=== PATIENT | female | born 1945 | race American Indian/Alaskan Native ===

== ENCOUNTER 2016-08-05 11:29 | Emergency (ER) | payer MEDICARE ==
--- NOTE | 2016-08-05 12:02 | Emergency Department Report ---
Chief Complaint: Hyperglycemia Stated Complaint: HBS Time Seen by Provider: 08/05/16 11:58 - HPI History of Present Illness: PT reports that her bg has been elevated all week - ROS Review of Systems: - n/v + increased thirst + urinary frequency - Exam Vital Signs: Vital Signs 08/05/16 11:45 Temperature 97.5 F L Pulse Rate 82 Respiratory 18 Rate Blood Pressure 149/77 O2 Sat by Pulse 99 Oximetry Physical Exam: obese female looks well, non toxic. gcs 15 MSE screening note: Focused history and physical exam performed. Due to findings the following was ordered: labs ED Disposition for MSE Condition: Stable
[2016-08-05 12:22] LABS: Basophils % (Auto) 0.9 % (0.0-1.8); Mean Corpuscular HGB Conc 33 % (30-34); Mean Corpuscular Hemoglobin 28 pg (28-32); Mean Corpuscular Volume 85 fl (79-97); Platelet Count 160 K/mm3 (140-440); Red Blood Count 4.72 M/mm3 (3.65-5.03); Red Cell Distribution Width 14.5 % (13.2-15.2)
[2016-08-05 12:29] LABS: Bilirubin,Urine NEG (Negative); Blood,Urine NEG (Negative); Ketones,Urine NEG (Negative); Leukocyte Esterase,Urine TR (Negative); Nitrite,Urine NEG (Negative); Protein,Urine <15 mg/dL mg/dL (Negative); Urobilinogen,Urine < 2.0 mg/dL (<2.0)
[2016-08-05 12:37] LABS: Albumin 3.9 g/dL (3.9-5); Albumin/Globulin Ratio 1.1 %; BUN/Creatinine Ratio 28.57; Bilirubin,Total 0.2 mg/dL (0.1-1.2); Calcium 9.5 mg/dL (8.4-10.2); Chloride 92.2 mmol/L (98-107); Potassium 4.2 mmol/L (3.6-5.0); Total Protein 7.4 g/dL (6.3-8.2)
[2016-08-05] MEDS ORDERED: NACL 0.9% 500 ML 500 ML IV ONE (20:36)
--- NOTE | 2016-08-05 21:15 | Emergency Department Report ---
HPI - General Chief Complaint: Hyperglycemia Time Seen by Provider: 08/05/16 11:58 - HPI HPI: This is a 71-year-old Afro-[place] female presents to the emergency department from home with complaint of uncontrolled an elevated blood sugar for the past week. The patient says that she feels like she has no energy and has some increased thirst and urination. Otherwise she denies any nausea, vomiting, abdominal pain, chest pain, shortness of breath. Patient takes metformin 1000 mg twice a day and Humulin 70/30 at 12 units twice daily and says she has been compliant. She has a past medical history of this diabetes as well as hypertension, asthma, arthritis and high cholesterol. She goes to [facility] for her primary care needs. No recent travel or sick contacts at home. ED Past Medical Hx - Past Medical History Hx Hypertension: Yes Hx Diabetes: Yes Hx Arthritis: Yes Hx Asthma: Yes Additional medical history: HIGH CHOLESTEROL - Surgical History Hx Cholecystectomy: Yes Additional Surgical History: LEFT KNEE. HYSTERECTOMY - Social History Smoking Status: Former Smoker Substance Use Type: None ED Review of Systems ROS: Stated complaint: HBS Other details as noted in HPI Comment: All other systems reviewed and negative Constitutional: denies: chills, fever Eyes: denies: eye pain, eye discharge, vision change ENT: denies: ear pain, throat pain Respiratory: denies: cough, shortness of breath, wheezing Cardiovascular: denies: chest pain, palpitations Endocrine: increased thirst, increased urine Genitourinary: frequency. denies: dysuria Musculoskeletal: denies: back pain, joint swelling, arthralgia Skin: denies: rash, lesions Neurological: denies: headache, weakness, paresthesias Physical Exam - Physical Exam Vital Signs: Vital Signs 08/05/16 08/05/16 08/05/16 11:45 20:22 20:28 Temperature 97.5 F L 97.7 F Pulse Rate 82 80 Respiratory 18 18 18 Rate Blood Pressure 149/77 Blood Pressure 142/66 [Left] O2 Sat by Pulse 99 98 98 Oximetry Physical Exam: GENERAL: The patient is well-developed well-nourished. HEENT: Normocephalic. Atraumatic. Extraocular motions are intact. Patient has moist mucous membranes. Pupils equal reactive to light bilaterally. NECK: Supple. Trachea is midline. CHEST/LUNGS: Clear to auscultation. There is no respiratory distress noted. HEART/CARDIOVASCULAR: Regular. There is no tachycardia. There is no gallop rub or murmur. ABDOMEN: Abdomen is soft, nontender. Patient has normal bowel sounds. There is no abdominal distention. SKIN: Skin is warm and dry. NEURO: The patient is awake, alert, and oriented. The patient is cooperative. The patient has no focal neurologic deficits. The patient has normal speech. Cranial nerves II through XII grossly intact. MUSCULOSKELETAL: There is no tenderness or deformity. There is no limitation range of motion. There is no evidence of acute injury. ED Course Vital Signs 08/05/16 08/05/16 08/05/16 11:45 20:22 20:28 Temperature 97.5 F L 97.7 F Pulse Rate 82 80 Respiratory 18 18 18 Rate Blood Pressure 149/77 Blood Pressure 142/66 [Left] O2 Sat by Pulse 99 98 98 Oximetry ED Medical Decision Making - Lab Data Result diagrams: 08/05/16 12:00 08/06/16 00:16 - Medical Decision Making This is a 71-year-old female presents to the emergency department with a complaint of decreased energy and uncontrolled blood sugar despite compliance with medication. Patient has a blood sugar of about 470 when she first had her metabolic panel drawn much earlier today. She had very mild venous acidosis and a mild elevation in her anion gap but still did not necessarily appear at that point to have obvious DKA. However that was through triage and prior to the patient getting back to the emergency department. Once I was able to mixing picker tender her chart and see the patient it had been close to 7 hours since those labs were drawn. An Accu-Chek was done showing that the blood sugar was under 400. The patient was given a dose of IV insulin and 500 mL bolus of fluid. Upon recheck her blood sugar did not improve greatly at that point. For this reason she was given another dose of IV insulin and a 1 L bolus of fluid. Her blood sugar came down to about 297 on Accu-Chek. I rechecked her metabolic panel and venous pH and found improvements. Patient no longer has any type of acidosis. The mild renal insufficiency she had a first has resolved and has normal kidney function. Patient has been resting comfortably. Her vital signs been stable throughout her ED course. For all these reasons I feel the patient is safe for discharge home. She will continue with her diabetes medications. We discussed dietary changes to make. And the patient will follow-up with her primary care doctor first thing Sunday without fail. She will return to the ER with any worsening of her symptoms or any acute distress. - Differential Diagnosis DKA, HHNK, UTI Critical Care Time: No Critical care attestation.: If time is entered above; I have spent that time in minutes in the direct care of this critically ill patient, excluding procedure time. ED Disposition Clinical Impression: Hyperglycemia, Polydipsia, Polyuria Fatigue Qualifiers: Fatigue type: unspecified Qualified Code(s): R53.83 - Other fatigue Disposition: DISCHARGED TO HOME OR SELFCARE Is pt being admited?: No Condition: Stable Instructions: Diabetic Hyperglycemia (ED) Additional Instructions: Please follow-up with your primary care doctor in the next few days. Return to the emergency department with any worsening of your symptoms or any acute distress. Continue with your diabetes medication regimen. Try to stay away from foods are high in sugar, carbohydrates and starches to help with your diabetes.[email or web address] Referrals: SHASTA MAGANA [Other] - 3-5 Days Time of Disposition: 02:05
[2016-08-05] MEDS ORDERED: NACL 0.9% 1000 ML 1,000 ML IV ONE (22:28)
[2016-08-06 01:05] LABS: BUN/Creatinine Ratio 30.9; Calcium 8.7 mg/dL (8.4-10.2)
[2016-08-06 01:42] VITALS: BP 129/63
[2016-08-06 02:01] LABS: Chloride 100.9 mmol/L (98-107); Potassium 3.9 mmol/L (3.6-5.0)
== END 2016-08-06 03:51 | disposition home or self-care (01) ==
LOC: ED 11:29
DX: E11.65 Type 2 diabetes mellitus with hyperglycemia (principal); R53.83 Other fatigue; I10 Essential (primary) hypertension; J45.909 Unspecified asthma, uncomplicated; E78.00 Pure hypercholesterolemia, unspecified; Z87.891 Personal history of nicotine dependence
CPT/HCPCS: 36415; 80048; 80053; 81001; 82010; 82805; 82962; 85025; 96361; 96374; 96376; 99283; J7030; J7040; J1815